=== PATIENT | male | born 1970 | race Caucasian/White ===

== ENCOUNTER 2018-04-25 17:35 | Emergency (ER) | payer SELFPAY ==
--- NOTE | 2018-04-25 19:44 | ED PDOC ---
HPI: Psych/Substance Abuse Time Seen by Provider: 04/25/18 18:15 Chief Complaint (Nursing): Alcohol Ingestion Chief Complaint (Provider): Alcohol Ingestion History Per: Patient History/Exam Limitations: no limitations Additional Complaint(s): Jasiel Kumari is a 47 year old male with a past medical history of alcohol abuse, who presents to the emergency department after being brought in by BLS from custodial for intoxication. Patient admits to drinking today but denies any shortness of breath, chest pain, trauma, dizziness, falling, or any other physical complaints. Patient states he wants to leave. Denies HTN, HL, DM. PMD: No provider Past Medical History Reviewed: Historical Data, Nursing Documentation, Vital Signs Vital Signs: Last Vital Signs Temp 98.0 F 04/25/18 17:39 Pulse 98 H 04/25/18 17:39 Resp 16 04/25/18 17:39 BP 130/99 H 04/25/18 17:39 Pulse Ox 100 04/25/18 17:39 - Medical History PMH: No Chronic Diseases - Surgical History Surgical History: No Surg Hx - Family History Family History: States: Unknown Family Hx - Social History Alcohol: Other (alcohol abuse) - Immunization History Hx Tetanus Toxoid Vaccination: No Hx Influenza Vaccination: No Hx Pneumococcal Vaccination: No - Home Medications Home Medications: Ambulatory Orders Medication Instructions Recorded Docusate [Colace] 100 mg PO BID #0 udc 02/22/14 RX: oxyCODONE/Acetaminophen 1 tab PO Q6 PRN #0 tab 02/22/14 [Percocet 5/325 mg Tab] - Allergies Allergies/Adverse Reactions: Allergies Allergy/AdvReac Type Severity Reaction Status Date / Time No Known Allergies Allergy Verified 02/21/14 19:03 Review of Systems ROS Statement: Except As Marked, All Systems Reviewed And Found Negative Constitutional: Positive for: Other (intoxication ) Cardiovascular: Negative for: Chest Pain Respiratory: Negative for: Shortness of Breath Neurological: Negative for: Dizziness Physical Exam - Reviewed Nursing Documentation Reviewed: Yes Vital Signs Reviewed: Yes - Physical Exam Head Exam: Positive for: ATRAUMATIC, NORMOCEPHALIC Eye Exam: Positive for: Conjunctival injection (bilateral) Cardiovascular/Chest: Positive for: Regular Rate, Rhythm. Negative for: Murmur Respiratory: Positive for: Normal Breath Sounds. Negative for: Respiratory Distress Neurologic/Psych: Positive for: Other (unable to speak coherently) - ECG O2 Sat by Pulse Oximetry: 100 (RA) Pulse Ox Interpretation: Normal Medical Decision Making Medical Decision Making: Initial Time: 18:43 Plan: --Finger stick --Blood alcohol serum: 360 23:00: re-evaluated, pt unable to speak coherently Scribe Attestation: Documented by Mohan Hutchison, acting as a scribe for Liya Roberts PA-C. Provider Scribe Attestation: All medical record entries made by the Scribe were at my direction and personally dictated by me. I have reviewed the chart and agree that the record accurately reflects my personal performance of the history, physical exam, medical decision making, and the department course for this patient. I have also personally directed, reviewed, and agree with the discharge instructions and disposition. 23:00: Pt endorsed to BLAYNE Chatman pending clinical sobriety Disposition - Clinical Impression Clinical Impression: Alcohol abuse with intoxication - Patient ED Disposition Is Patient to be Admitted: Transfer of Care - Disposition Disposition: Transfer of Care Disposition Time: 23:20 Condition: FAIR Forms: [facility] (Tanzanian)
[2018-04-26 00:12] VITALS: RESP 18; O2SAT 99
--- NOTE | 2018-04-26 04:29 | ED PDOC ---
- ECG O2 Sat by Pulse Oximetry: 99 - Progress ED Course And Treament: Case endorsed to commercial underwriter from [employer] [facility] pending sobriety 1:30 Patient sleeping; no distress 3:00 Patient sleeping; no distress 4:30 Patient sleeping; no distress 5:00 Patient awake, alert, oriented x3. Ambulating steady gait. Stable for discharge Disposition - Clinical Impression Clinical Impression: Alcohol abuse with intoxication - POA Present On Arrival: None - Disposition Disposition: Routine/Home Disposition Time: 04:29 Condition: IMPROVED Instructions: Alcohol Abuse and Alcoholism (DC)
[2018-04-26 06:47] VITALS: BP 122/76; PULSE 83; TEMP 98.3
== END 2018-04-26 06:46 | disposition home or self-care (01) ==
LOC: H.ER 17:35
DX: F10.129 Alcohol abuse with intoxication, unspecified (principal)
CPT/HCPCS: 82948; 99283; G0480

== ENCOUNTER 2018-06-20 22:01 | Emergency (ER) | payer SELFPAY ==
[2018-06-20 22:09] VITALS: BP 144/90; PULSE 88; RESP 16; TEMP 98; O2SAT 98
--- NOTE | 2018-06-20 22:37 | ED PDOC ---
HPI: Psych/Substance Abuse Time Seen by Provider: 06/20/18 22:34 Chief Complaint (Nursing): Alcohol Ingestion Chief Complaint (Provider): Alcohol Intoxication ED Caveat: Intoxicated History Per: Patient History/Exam Limitations: no limitations Onset/Duration Of Symptoms: Hrs (several) Current Symptoms Are (Timing): Still Present Suicide/Self Injury Attempted (Context): None (Pt presented by [facility] after patient was removed from the [facility] due to his gross intoxication; Pt indicates no chronic medical conditions) Past Medical History Reviewed: Historical Data, Nursing Documentation, Vital Signs Vital Signs: Last Vital Signs Temp 98.0 F 06/20/18 22:06 Pulse 88 06/20/18 22:06 Resp 16 06/20/18 22:06 BP 144/90 06/20/18 22:06 Pulse Ox 98 06/20/18 22:06 - Family History Family History: States: Unknown Family Hx - Immunization History Hx Tetanus Toxoid Vaccination: No Hx Influenza Vaccination: No Hx Pneumococcal Vaccination: No - Home Medications Home Medications: Ambulatory Orders Medication Instructions Recorded Docusate [Colace] 100 mg PO BID #0 udc 02/22/14 oxyCODONE/Acetaminophen [Percocet 1 tab PO Q6 PRN #0 tab 02/22/14 5/325 mg Tab] - Allergies Allergies/Adverse Reactions: Allergies Allergy/AdvReac Type Severity Reaction Status Date / Time No Known Allergies Allergy Verified 06/20/18 22:06 Review of Systems ROS Statement: Except As Marked, All Systems Reviewed And Found Negative Neurological: Positive for: Other (intoxicated state) Physical Exam - Reviewed Nursing Documentation Reviewed: Yes Vital Signs Reviewed: Yes - Physical Exam Appears: Positive for: Well, No Acute Distress. Negative for: Uncomfortable Head Exam: Positive for: ATRAUMATIC, NORMAL INSPECTION Skin: Positive for: Normal Color, Warm, Dry. Negative for: Diaphoresis, Pallor, Rash Eye Exam: Positive for: Normal appearance Cardiovascular/Chest: Positive for: Regular Rate, Rhythm Respiratory: Positive for: Normal Breath Sounds Pulses-Carotid (L): 2+ Pulses-Carotid (R): 2+ Pulses-Radial (L): 2+ Pulses-Radial (R): 2+ - ECG O2 Sat by Pulse Oximetry: 98 Disposition - Clinical Impression Clinical Impression: Alcohol ingestion - Patient ED Disposition Is Patient to be Admitted: Transfer of Care - Disposition Disposition: Transfer of Care Disposition Time: 23:31 Condition: STABLE Forms: [facility] (Cameroonian)
--- NOTE | 2018-06-21 04:41 | ED PDOC ---
- ECG O2 Sat by Pulse Oximetry: 98 - Progress ED Course And Treament: Case endorsed to advertising copywriter from [employer] [facility] pending sobriety 1:30 Patient sleeping; no distress 3:00 Patient sleeping; no distress 4:30 Patient awake, alert, oriented x3. Ambulating steady gait Patient requires no further intervention in the ED and is stable for discharge at this itme Disposition - Clinical Impression Clinical Impression: Alcohol ingestion - POA Present On Arrival: None - Disposition Disposition: Routine/Home Disposition Time: 04:40 Condition: STABLE Instructions: Alcohol Use - When Is Drinking a Problem?
== END 2018-06-21 06:02 | disposition home or self-care (01) ==
LOC: H.ER 22:01
DX: F10.129 Alcohol abuse with intoxication, unspecified (principal)